=== PATIENT | female | born 1970 | race Caucasian/White ===

== ENCOUNTER 2018-04-15 12:31 | Emergency (ER) | payer BC, MEDICAID ==
[~2018-04-15] VITALS: Ht 157.5 cm; Wt 61.7 kg
[2018-04-15] MEDS ORDERED: DIPHENHYDRAMINE 50 MG/ML, 1ML IVPush ONE (14:00)
[2018-04-15] MEDS ORDERED: KETOROLAC 30 MG/1 ML IVPush ONE (14:00)
[2018-04-15] MEDS ORDERED: SODIUM CHLORIDE FLUSH 10ML SYR IVF ONE (14:00)
[2018-04-15] MEDS ORDERED: SODIUM CHLORIDE 0.9% 1,000ML IVBOLUS ONE (14:00)
[2018-04-15] MEDS ORDERED: METOCLOPRAMIDE 5 MG/ML, 2ML IVPush ONE (14:00)
[2018-04-15 14:07] LABS: BASOPHILS # (AUTO) 0.04 x10^3/uL (0-0.1); BASOPHILS % (AUTO) 0 % (0-1); EOSINOPHILS # (AUTO) 0.05 x10^3/uL (0-0.4); EOSINOPHILS % (AUTO) 0 % (1-7); LYMPHOCYTES # (AUTO) 2.48 x10^3/uL (1-3.4); LYMPHOCYTES % (AUTO) 19 % (22-44); MD NO; MEAN CORPUSCULAR HEMOGLOBIN 31.8 pg (27.0-34.8); MEAN CORPUSCULAR HGB CONC 33.9 g/dL (32.4-35.8); MEAN PLATELET VOLUME 8.4 fL (7.4-10.4); MONOCYTES # (AUTO) 0.98 x10^3/uL (0.2-0.8); MONOCYTES % (AUTO) 8 % (2-9); NEUTROPHILS # (AUTO) 9.31 x10^3/uL (1.8-6.8); NEUTROPHILS % (AUTO) 72 % (42-75); PLATELET COUNT 419 x10^3/uL (130-400); RED BLOOD COUNT 3.91 x10^6/uL (3.82-5.3)
[2018-04-15] MEDS ORDERED: METOCLOPRAMIDE 5 MG/ML, 2ML ONE (14:19)
[2018-04-15] MEDS ORDERED: KETOROLAC 30 MG/1 ML ONE (14:19)
[2018-04-15] MEDS ORDERED: DIPHENHYDRAMINE 50 MG/ML, 1ML ONE (14:19)
[2018-04-15 14:21] LABS: ALBUMIN 3.6 g/dL (3.4-5.0); ANION GAP 6 mmol/L (5-15); CALCIUM 8.7 mg/dL (8.5-10.1); CHLORIDE 108 mmol/L (98-107)
[2018-04-15 14:25] LABS: ALANINE AMINOTRANSFERASE 181 U/L (12-78); ALKALINE PHOSPHATASE 286 U/L (45-117); BILIRUBIN,TOTAL 0.8 mg/dL (0.2-1.0); CREATININE 0.76 mg/dL (0.55-1.02); TOTAL PROTEIN 7.2 g/dL (6.4-8.2)
[2018-04-15 14:51] LABS: MICROSCOPIC NOT IND
[2018-04-15 15:03] LABS: CULTURE INDICATED? NO
[2018-04-15 15:37] VITALS: BP 115/85
== END 2018-04-15 16:07 | disposition home or self-care (01) ==
LOC: ED 16:00
DX: R10.84 Generalized abdominal pain (principal); R11.2 Nausea with vomiting, unspecified; I10 Essential (primary) hypertension
CPT/HCPCS: 36415; 76700; 80053; 81003; 83690; 85025; 86677; 93005; 96361; 96374; 96375; 99285; J1200; J1885; J2765; J7030

== ENCOUNTER 2018-04-18 13:31 | Inpatient (IN) | payer MEDICAID ==
[~2018-04-18] VITALS: Ht 157.5 cm; Wt 66.0 kg
[2018-04-18 14:27] LABS: HCG UR SG 1.011 (1.003-1.030); MICROSCOPIC NOT IND
[2018-04-18 14:30] LABS: CULTURE INDICATED? NO
[2018-04-18] MEDS ORDERED: PANTOPRAZOLE 20MG TABLET PO ONE (14:30)
[2018-04-18] MEDS ORDERED: MAALOX/HYOSCYAMINE/LIDOCAINE 45 ML BTL PO ONE (14:30)
[2018-04-18] MEDS ORDERED: NICO-523 PO (14:32)
[2018-04-18] MEDS ORDERED: GABA100C PO (14:32)
[2018-04-18] MEDS ORDERED: CHOL4PAC2 PO (14:32)
[2018-04-18] MEDS ORDERED: ALBU5SOL6 INH (14:32)
[2018-04-18] MEDS ORDERED: ALPR1TAB6 PO (14:32)
[2018-04-18] MEDS ORDERED: DOXY100C26 PO (14:32)
[2018-04-18] MEDS ORDERED: DICL100G19 XX (14:32)
[2018-04-18] MEDS ORDERED: ATOR10TA PO (14:32)
[2018-04-18] MEDS ORDERED: MAALOX/HYOSCYAMINE/LIDOCAINE 45 ML BTL ONE (14:36)
[2018-04-18] MEDS ORDERED: PANTOPRAZOLE 20MG TABLET ONE (14:36)
[2018-04-18 14:46] LABS: BASOPHILS # (AUTO) 0.09 x10^3/uL (0-0.1); BASOPHILS % (AUTO) 1 % (0-1); EOSINOPHILS # (AUTO) 0.14 x10^3/uL (0-0.4); EOSINOPHILS % (AUTO) 1 % (1-7); LYMPHOCYTES # (AUTO) 4.07 x10^3/uL (1-3.4); LYMPHOCYTES % (AUTO) 30 % (22-44); MD NO; MEAN CORPUSCULAR HEMOGLOBIN 30.9 pg (27.0-34.8); MEAN CORPUSCULAR HGB CONC 33.2 g/dL (32.4-35.8); MEAN CORPUSCULAR VOLUME 93.2 fL (80-100); MEAN PLATELET VOLUME 8.3 fL (7.4-10.4); MONOCYTES # (AUTO) 0.86 x10^3/uL (0.2-0.8); MONOCYTES % (AUTO) 6 % (2-9); NEUTROPHILS # (AUTO) 8.24 x10^3/uL (1.8-6.8); NEUTROPHILS % (AUTO) 61 % (42-75); PLATELET COUNT 449 x10^3/uL (130-400); RED BLOOD COUNT 3.71 x10^6/uL (3.82-5.3); RED CELL DISTRIBUTION WIDTH 15.2 % (9.6-15.2)
[2018-04-18 14:53] LABS: ALANINE AMINOTRANSFERASE 278 U/L (12-78); ALBUMIN 3.4 g/dL (3.4-5.0); ANION GAP 7 mmol/L (5-15); CALCIUM 8.9 mg/dL (8.5-10.1); CHLORIDE 110 mmol/L (98-107); CREATININE 0.79 mg/dL (0.55-1.02)
[2018-04-18 14:55] LABS: ALKALINE PHOSPHATASE 386 U/L (45-117); BILIRUBIN,TOTAL 0.9 mg/dL (0.2-1.0)
[2018-04-18] MEDS ORDERED: OMNIPAQUE 350 MG/ML, 100ML BOTTLE ONE (15:59)
[2018-04-18] MEDS ORDERED: OXYcodone IR 5MG TABLET PO ONE (18:30)
[2018-04-18] MEDS ORDERED: OXYcodone IR 5MG TABLET ONE (18:45)
[2018-04-18] MEDS ORDERED: BISACODYL 10 MG SUPP PR PRN (19:30)
[2018-04-18] MEDS ORDERED: POLYETHYLENE GLYCOL 17 GM PACKET PO PRN (19:30)
[2018-04-18 19:55] VITALS: BP 118/78
[2018-04-18] MEDS: NICOTINE 7 MG/24 HR PATCH.TD24 TD SCH (20:19)
[2018-04-18] MEDS: GABAPENTIN 100 MG CAPSULE PO SCH (21:00)
[2018-04-18] MEDS: CHOLESTYRAMINE LIGHT 4GM PACKET PO SCH (21:00)
[2018-04-18] MEDS: SODIUM CHLORIDE FLUSH 10ML SYR IVF SCH (21:00)
[2018-04-18] MEDS: DOXYCYCLINE 100MG TABLET PO SCH (21:00)
[2018-04-18] MEDS: ATORVASTATIN 10 MG TABLET PO SCH (21:00)
[2018-04-18] MEDS: SODIUM CHLORIDE 0.9% 1,000 ML IV SCH (21:09)
[2018-04-18] MEDS: morphine SULFATE 10 MG/ML, 1ML IVPush PRN (21:41)
[2018-04-18] MEDS ORDERED: ALBUTEROL SULFATE 2.5 MG/3 ML NPPB PRN (22:00)
[2018-04-18] MEDS: HEPARIN 5,000 UNITS/ML, 1ML SQ SCH (22:00)
[2018-04-19] MEDS: morphine SULFATE 10 MG/ML, 1ML IVPush PRN ×6 (00:35→22:32)
[2018-04-19 02:20] VITALS: BP 126/84
[2018-04-19 04:38] LABS: BASOPHILS # (AUTO) 0.07 x10^3/uL (0-0.1); BASOPHILS % (AUTO) 1 % (0-1); EOSINOPHILS % (AUTO) 2 % (1-7); LYMPHOCYTES # (AUTO) 3.98 x10^3/uL (1-3.4); LYMPHOCYTES % (AUTO) 40 % (22-44); MD NO; MEAN CORPUSCULAR HEMOGLOBIN 32.4 pg (27.0-34.8); MEAN CORPUSCULAR HGB CONC 34.3 g/dL (32.4-35.8); MEAN CORPUSCULAR VOLUME 94.3 fL (80-100); MEAN PLATELET VOLUME 8.5 fL (7.4-10.4); MONOCYTES # (AUTO) 0.73 x10^3/uL (0.2-0.8); MONOCYTES % (AUTO) 7 % (2-9); NEUTROPHILS # (AUTO) 5.02 x10^3/uL (1.8-6.8); NEUTROPHILS % (AUTO) 50 % (42-75); PLATELET COUNT 387 x10^3/uL (130-400); RED BLOOD COUNT 3.51 x10^6/uL (3.82-5.3); RED CELL DISTRIBUTION WIDTH 15.3 % (9.6-15.2)
[2018-04-19 04:50] LABS: ALBUMIN 3.2 g/dL (3.4-5.0); ANION GAP 5 mmol/L (5-15); CALCIUM 8.3 mg/dL (8.5-10.1); CHLORIDE 110 mmol/L (98-107)
[2018-04-19 04:56] LABS: ALANINE AMINOTRANSFERASE 217 U/L (12-78); ALKALINE PHOSPHATASE 361 U/L (45-117); BILIRUBIN,TOTAL 0.7 mg/dL (0.2-1.0); CREATININE 0.75 mg/dL (0.55-1.02); TOTAL PROTEIN 6.2 g/dL (6.4-8.2)
[2018-04-19] MEDS: HEPARIN 5,000 UNITS/ML, 1ML SQ SCH ×2 (06:29→16:17)
[2018-04-19 07:25] VITALS: BP 146/88
[2018-04-19] MEDS: SENNA/DOCUSATE TABLET PO SCH (09:00)
[2018-04-19] MEDS: DOXYCYCLINE 100MG TABLET PO SCH ×2 (09:00→21:00)
[2018-04-19] MEDS: GABAPENTIN 100 MG CAPSULE PO SCH ×2 (09:00→21:00)
[2018-04-19] MEDS: CHOLESTYRAMINE LIGHT 4GM PACKET PO SCH ×3 (09:00→21:00)
[2018-04-19] MEDS: SODIUM CHLORIDE FLUSH 10ML SYR IVF SCH ×2 (09:00→21:00)
[2018-04-19] MEDS: BUTALB/APAP/CAFFEINE 50MG/325MG/40MG PO PRN (09:30)
[2018-04-19] MEDS ORDERED: KETOROLAC 30 MG/1 ML IVPush ONE (11:45)
[2018-04-19] MEDS: SODIUM CHLORIDE 0.9% 1,000 ML IV SCH (12:23)
[2018-04-19 13:18] VITALS: BP 125/83
[2018-04-19 15:25] LABS: INTERNATIONAL NORMALIZED RATIO 1.01 (0.93-1.1); PROTHROMBIN TIME 10.5 Seconds (9.6-11.5)
[2018-04-19 19:06] VITALS: BP 145/90
[2018-04-19] MEDS: NICOTINE 7 MG/24 HR PATCH.TD24 TD SCH (19:23)
[2018-04-19] MEDS: ATORVASTATIN 10 MG TABLET PO SCH (21:00)
[2018-04-20] MEDS: SODIUM CHLORIDE 0.9% 1,000 ML IV SCH ×2 (00:16→16:46)
[2018-04-20] MEDS: morphine SULFATE 10 MG/ML, 1ML IVPush PRN ×3 (01:31→13:00)
[2018-04-20 01:41] VITALS: BP 135/88
[2018-04-20] MEDS: HEPARIN 5,000 UNITS/ML, 1ML SQ SCH ×4 (06:00→22:47)
[2018-04-20 07:03] VITALS: BP 164/99
[2018-04-20] MEDS: SODIUM CHLORIDE FLUSH 10ML SYR IVF SCH ×2 (07:31→21:00)
[2018-04-20] MEDS: DOXYCYCLINE 100MG TABLET PO SCH ×2 (07:33→21:00)
[2018-04-20] MEDS: CHOLESTYRAMINE LIGHT 4GM PACKET PO SCH ×3 (07:33→21:00)
[2018-04-20] MEDS: GABAPENTIN 100 MG CAPSULE PO SCH ×2 (07:33→21:00)
[2018-04-20] MEDS: SENNA/DOCUSATE TABLET PO SCH (07:33)
[2018-04-20] MEDS ORDERED: MIDAZOLAM 1 MG/ML, 2ML ONE ×2 (07:58→09:47)
[2018-04-20] MEDS ORDERED: PROPOFOL 10 MG/ML, 20ML ONE (09:46)
[2018-04-20] MEDS ORDERED: SUCCINYLCHOLINE 20 MG/ML, 10ML ONE (09:46)
[2018-04-20] MEDS ORDERED: FENTANYL PF 100 MCG/2ML ONE ×2 (09:47→12:02)
[2018-04-20] MEDS ORDERED: DEXAMETHASONE 4 MG/ML, 1ML ONE (09:47)
[2018-04-20] MEDS ORDERED: ONDANSETRON 2MG/ML, 2ML ONE (09:47)
[2018-04-20] MEDS ORDERED: OXYcodone 5 MG/5 ML ORAL.SOL UDC PO PRN (10:30)
[2018-04-20] MEDS ORDERED: PROMETHAZINE 25 MG/ML, 1ML IV PRN (10:30)
[2018-04-20] MEDS ORDERED: EPHEDRINE 50 MG/ML, 1ML IVPush PRN (10:30)
[2018-04-20] MEDS ORDERED: METOPROLOL 1 MG/ML, 5ML IV PRN (10:30)
[2018-04-20] MEDS ORDERED: FENTANYL PF 100 MCG/2ML IV PRN (10:30)
[2018-04-20] MEDS ORDERED: ALBUTEROL SULFATE 2.5 MG/3 ML NPPB PRN (10:30)
[2018-04-20] MEDS ORDERED: MEPERIDINE/PF 25MG/0.5ML IVPush PRN (10:30)
[2018-04-20] MEDS ORDERED: hydrALAzine 20 MG/ML, 1ML IV PRN (10:30)
[2018-04-20] MEDS ORDERED: LABETALOL 5MG/ML, 20ML IV PRN (10:30)
[2018-04-20] MEDS ORDERED: EPHEDRINE 50 MG/ML, 1ML ONE (10:37)
[2018-04-20] MEDS ORDERED: OMNIPAQUE 350 MG/ML, 50 ML BOTTLE ONE (12:28)
[2018-04-20] MEDS ORDERED: GLUCAGON 1 MG ONE ×2 (12:53→13:42)
[2018-04-20 14:06] VITALS: BP 156/85
[2018-04-20] MEDS ORDERED: HYDROmorphone 1 MG/ML, 1ML IV ONE (14:30)
[2018-04-20] MEDS ORDERED: HYDROmorphone 2 MG/ML, 1ML ONE (14:55)
[2018-04-20] MEDS: MORPHINE SULFATE 4 MG/ML, 1ML IVPush PRN ×2 (19:05→22:44)
[2018-04-20] MEDS: NICOTINE 7 MG/24 HR PATCH.TD24 TD SCH (19:27)
[2018-04-20 19:30] VITALS: BP 161/92
[2018-04-20] MEDS: ATORVASTATIN 10 MG TABLET PO SCH (21:00)
[2018-04-21 03:20] VITALS: BP 156/88
[2018-04-21] MEDS: MORPHINE SULFATE 4 MG/ML, 1ML IVPush PRN (04:16)
[2018-04-21] MEDS: SODIUM CHLORIDE 0.9% 1,000 ML IV SCH ×2 (05:27→20:37)
[2018-04-21 05:55] LABS: ALBUMIN 2.9 g/dL (3.4-5.0); ANION GAP 6 mmol/L (5-15); CALCIUM 8.1 mg/dL (8.5-10.1); CHLORIDE 111 mmol/L (98-107)
[2018-04-21 05:59] LABS: ALANINE AMINOTRANSFERASE 159 U/L (12-78); ALKALINE PHOSPHATASE 387 U/L (45-117); BILIRUBIN,TOTAL 0.8 mg/dL (0.2-1.0); CREATININE 0.68 mg/dL (0.55-1.02); TOTAL PROTEIN 5.9 g/dL (6.4-8.2)
[2018-04-21] MEDS: HEPARIN 5,000 UNITS/ML, 1ML SQ SCH ×3 (06:00→20:35)
[2018-04-21 07:45] VITALS: BP 136/88
[2018-04-21] MEDS: BUTALB/APAP/CAFFEINE 50MG/325MG/40MG PO PRN (08:48)
[2018-04-21] MEDS: SODIUM CHLORIDE FLUSH 10ML SYR IVF SCH ×2 (08:48→20:37)
[2018-04-21] MEDS: CHOLESTYRAMINE LIGHT 4GM PACKET PO SCH ×3 (08:49→20:38)
[2018-04-21] MEDS: SENNA/DOCUSATE TABLET PO SCH (08:49)
[2018-04-21] MEDS: GABAPENTIN 100 MG CAPSULE PO SCH ×2 (08:49→20:37)
[2018-04-21] MEDS: DOXYCYCLINE 100MG TABLET PO SCH (08:49)
[2018-04-21 12:22] LABS: BASOPHILS # (AUTO) 0.03 x10^3/uL (0-0.1); BASOPHILS % (AUTO) 0 % (0-1); EOSINOPHILS # (AUTO) 0.01 x10^3/uL (0-0.4); EOSINOPHILS % (AUTO) 0 % (1-7); LYMPHOCYTES # (AUTO) 2.64 x10^3/uL (1-3.4); LYMPHOCYTES % (AUTO) 17 % (22-44); MD NO; MEAN CORPUSCULAR HEMOGLOBIN 31.8 pg (27.0-34.8); MEAN CORPUSCULAR HGB CONC 33.3 g/dL (32.4-35.8); MEAN CORPUSCULAR VOLUME 95.6 fL (80-100); MEAN PLATELET VOLUME 9.7 fL (7.4-10.4); MONOCYTES # (AUTO) 0.85 x10^3/uL (0.2-0.8); MONOCYTES % (AUTO) 6 % (2-9); NEUTROPHILS # (AUTO) 12.08 x10^3/uL (1.8-6.8); NEUTROPHILS % (AUTO) 77 % (42-75); PLATELET COUNT 356 x10^3/uL (130-400); RED BLOOD COUNT 3.34 x10^6/uL (3.82-5.3); RED CELL DISTRIBUTION WIDTH 15.6 % (9.6-15.2)
[2018-04-21 15:56] VITALS: BP 142/84
[2018-04-21] MEDS: ONDANSETRON 2MG/ML, 2ML IVPush PRN ×2 (17:24→23:28)
[2018-04-21] MEDS: KETOROLAC 30 MG/1 ML IVPush PRN ×2 (17:25→23:28)
[2018-04-21 19:22] VITALS: BP 124/80
[2018-04-21] MEDS: ATORVASTATIN 10 MG TABLET PO SCH (20:37)
[2018-04-21] MEDS: NICOTINE 7 MG/24 HR PATCH.TD24 TD SCH (20:38)
[2018-04-21] MEDS: LORazepam 1MG TABLET PO PRN (20:44)
[2018-04-22 01:42] VITALS: BP 143/89
[2018-04-22] MEDS: KETOROLAC 30 MG/1 ML IVPush PRN ×2 (05:11→20:36)
[2018-04-22 05:29] LABS: BASOPHILS # (AUTO) 0.05 x10^3/uL (0-0.1); BASOPHILS % (AUTO) 1 % (0-1); EOSINOPHILS # (AUTO) 0.11 x10^3/uL (0-0.4); EOSINOPHILS % (AUTO) 1 % (1-7); LYMPHOCYTES # (AUTO) 4.19 x10^3/uL (1-3.4); LYMPHOCYTES % (AUTO) 38 % (22-44); MD NO; MEAN CORPUSCULAR HEMOGLOBIN 32.4 pg (27.0-34.8); MEAN CORPUSCULAR HGB CONC 33.6 g/dL (32.4-35.8); MEAN CORPUSCULAR VOLUME 96.6 fL (80-100); MEAN PLATELET VOLUME 9.3 fL (7.4-10.4); MONOCYTES # (AUTO) 0.84 x10^3/uL (0.2-0.8); MONOCYTES % (AUTO) 8 % (2-9); NEUTROPHILS # (AUTO) 5.84 x10^3/uL (1.8-6.8); NEUTROPHILS % (AUTO) 53 % (42-75); PLATELET COUNT 304 x10^3/uL (130-400); RED BLOOD COUNT 3.03 x10^6/uL (3.82-5.3); RED CELL DISTRIBUTION WIDTH 16.9 % (9.6-15.2)
[2018-04-22 05:33] LABS: CHLORIDE 111 mmol/L (98-107)
[2018-04-22 05:38] LABS: ALANINE AMINOTRANSFERASE 115 U/L (12-78); ALBUMIN 2.7 g/dL (3.4-5.0); ALKALINE PHOSPHATASE 297 U/L (45-117); ANION GAP 7 mmol/L (5-15); BILIRUBIN,TOTAL 0.4 mg/dL (0.2-1.0); CALCIUM 8.1 mg/dL (8.5-10.1); CREATININE 0.77 mg/dL (0.55-1.02); TOTAL PROTEIN 5.5 g/dL (6.4-8.2)
[2018-04-22] MEDS: HEPARIN 5,000 UNITS/ML, 1ML SQ SCH ×3 (06:00→21:12)
[2018-04-22 08:00] VITALS: BP 151/91
[2018-04-22] MEDS: SODIUM CHLORIDE FLUSH 10ML SYR IVF SCH ×2 (08:20→20:36)
[2018-04-22] MEDS: CHOLESTYRAMINE LIGHT 4GM PACKET PO SCH ×3 (08:20→21:00)
[2018-04-22] MEDS: SENNA/DOCUSATE TABLET PO SCH (08:20)
[2018-04-22] MEDS: GABAPENTIN 100 MG CAPSULE PO SCH ×2 (08:20→21:00)
[2018-04-22 14:30] VITALS: BP 154/99
[2018-04-22] MEDS: NICOTINE 7 MG/24 HR PATCH.TD24 TD SCH (16:12)
[2018-04-22] MEDS: LORazepam 1MG TABLET PO PRN (16:16)
[2018-04-22 19:13] VITALS: BP 113/70
[2018-04-22] MEDS: SODIUM CHLORIDE 0.9% 1,000 ML IV SCH (20:08)
[2018-04-22] MEDS: ATORVASTATIN 10 MG TABLET PO SCH (21:00)
[2018-04-23 01:29] VITALS: BP 146/84
[2018-04-23] MEDS: SODIUM CHLORIDE 0.9% 1,000 ML IV SCH ×3 (03:33→20:05)
[2018-04-23 04:34] LABS: BASOPHILS # (AUTO) 0.05 x10^3/uL (0-0.1); BASOPHILS % (AUTO) 0 % (0-1); EOSINOPHILS # (AUTO) 0.22 x10^3/uL (0-0.4); EOSINOPHILS % (AUTO) 2 % (1-7); LYMPHOCYTES # (AUTO) 3.25 x10^3/uL (1-3.4); LYMPHOCYTES % (AUTO) 25 % (22-44); MD NO; MEAN CORPUSCULAR HGB CONC 33.4 g/dL (32.4-35.8); MEAN CORPUSCULAR VOLUME 95.7 fL (80-100); MEAN PLATELET VOLUME 8.7 fL (7.4-10.4); MONOCYTES % (AUTO) 8 % (2-9); NEUTROPHILS # (AUTO) 8.56 x10^3/uL (1.8-6.8); NEUTROPHILS % (AUTO) 66 % (42-75); PLATELET COUNT 333 x10^3/uL (130-400); RED BLOOD COUNT 3.26 x10^6/uL (3.82-5.3); RED CELL DISTRIBUTION WIDTH 16.1 % (9.6-15.2)
[2018-04-23 04:45] LABS: ALANINE AMINOTRANSFERASE 93 U/L (12-78); ALBUMIN 2.8 g/dL (3.4-5.0); ANION GAP 6 mmol/L (5-15); CALCIUM 7.9 mg/dL (8.5-10.1); CHLORIDE 112 mmol/L (98-107); CREATININE 0.76 mg/dL (0.55-1.02)
[2018-04-23 04:47] LABS: ALKALINE PHOSPHATASE 275 U/L (45-117); BILIRUBIN,TOTAL 0.4 mg/dL (0.2-1.0); TOTAL PROTEIN 5.9 g/dL (6.4-8.2)
[2018-04-23] MEDS: HEPARIN 5,000 UNITS/ML, 1ML SQ SCH ×3 (05:21→19:53)
[2018-04-23] MEDS: LORazepam 1MG TABLET PO PRN ×2 (06:38→20:06)
[2018-04-23 06:45] VITALS: BP 165/104
[2018-04-23] MEDS: SENNA/DOCUSATE TABLET PO SCH (07:55)
[2018-04-23] MEDS: CHOLESTYRAMINE LIGHT 4GM PACKET PO SCH ×3 (07:55→19:52)
[2018-04-23] MEDS: GABAPENTIN 100 MG CAPSULE PO SCH ×2 (07:56→19:52)
[2018-04-23] MEDS: SODIUM CHLORIDE FLUSH 10ML SYR IVF SCH ×2 (07:56→19:51)
[2018-04-23 10:15] VITALS: BP 145/87
[2018-04-23 14:06] VITALS: BP 172/92
[2018-04-23] MEDS ORDERED: hydrALAzine 20 MG/ML, 1ML IV PRN (15:00)
[2018-04-23] MEDS: NICOTINE 7 MG/24 HR PATCH.TD24 TD SCH (16:45)
[2018-04-23] MEDS: ATORVASTATIN 10 MG TABLET PO SCH (19:52)
[2018-04-23 20:24] VITALS: BP 153/88
[2018-04-24 01:03] VITALS: BP 168/99
[2018-04-24 05:07] LABS: CHLORIDE 109 mmol/L (98-107)
[2018-04-24 05:14] LABS: BASOPHILS # (AUTO) 0.09 x10^3/uL (0-0.1); BASOPHILS % (AUTO) 1 % (0-1); EOSINOPHILS # (AUTO) 0.25 x10^3/uL (0-0.4); EOSINOPHILS % (AUTO) 2 % (1-7); LYMPHOCYTES # (AUTO) 3.55 x10^3/uL (1-3.4); LYMPHOCYTES % (AUTO) 29 % (22-44); MD NO; MEAN CORPUSCULAR HEMOGLOBIN 32.3 pg (27.0-34.8); MEAN CORPUSCULAR HGB CONC 33.7 g/dL (32.4-35.8); MEAN CORPUSCULAR VOLUME 95.9 fL (80-100); MEAN PLATELET VOLUME 9.3 fL (7.4-10.4); MONOCYTES # (AUTO) 1.09 x10^3/uL (0.2-0.8); MONOCYTES % (AUTO) 9 % (2-9); NEUTROPHILS # (AUTO) 7.29 x10^3/uL (1.8-6.8); NEUTROPHILS % (AUTO) 59 % (42-75); PLATELET COUNT 351 x10^3/uL (130-400); RED BLOOD COUNT 3.36 x10^6/uL (3.82-5.3)
[2018-04-24 05:16] LABS: ALANINE AMINOTRANSFERASE 80 U/L (12-78); ALBUMIN 2.8 g/dL (3.4-5.0); ALKALINE PHOSPHATASE 246 U/L (45-117); ANION GAP 7 mmol/L (5-15); BILIRUBIN,TOTAL 0.3 mg/dL (0.2-1.0); CALCIUM 8.6 mg/dL (8.5-10.1); CREATININE 0.84 mg/dL (0.55-1.02); TOTAL PROTEIN 6.2 g/dL (6.4-8.2)
[2018-04-24] MEDS: HEPARIN 5,000 UNITS/ML, 1ML SQ SCH (06:00)
[2018-04-24] MEDS: SODIUM CHLORIDE 0.9% 1,000 ML IV SCH (06:16)
[2018-04-24] MEDS: GABAPENTIN 100 MG CAPSULE PO SCH (07:26)
[2018-04-24] MEDS: SENNA/DOCUSATE TABLET PO SCH (07:26)
[2018-04-24] MEDS: CHOLESTYRAMINE LIGHT 4GM PACKET PO SCH (07:26)
[2018-04-24] MEDS ORDERED: AMLODIPINE 5 MG TABLET PO SCH (09:00)
[2018-04-24] MEDS: SODIUM CHLORIDE FLUSH 10ML SYR IVF SCH (09:00)
[2018-04-24 09:15] VITALS: BP 163/93
[2018-04-24] MEDS: LORazepam 1MG TABLET PO PRN (09:16)
[2018-04-24 13:14] VITALS: BP 149/84
[2018-04-24] MEDS ORDERED: AMLO5TAB2 PO (13:34)
== END 2018-04-24 14:00 | disposition home or self-care (01) | DRG 444 ==
LOC: ED 14:45 → EDIP 18:33 → 3NE 19:53
PROVIDERS: ADMIT Hospitalist; ATTEND Hospitalist
PROC: BF101ZZ Fluoroscopy of Bile Ducts using Low Osmolar Contrast (ICD-10-PCS; 2018-04-20)
PROC: 0FC98ZZ Extirpation of Matter from Common Bile Duct, Via Natural or Artificial Opening Endoscopic (ICD-10-PCS; principal; 2018-04-20 10:30)
DX: K80.51 Calculus of bile duct without cholangitis or cholecystitis with obstruction (principal); K85.90 Acute pancreatitis without necrosis or infection, unspecified; D64.9 Anemia, unspecified; E78.5 Hyperlipidemia, unspecified; F17.210 Nicotine dependence, cigarettes, uncomplicated; F41.9 Anxiety disorder, unspecified; G43.909 Migraine, unspecified, not intractable, without status migrainosus; J44.9 Chronic obstructive pulmonary disease, unspecified; N83.201 Unspecified ovarian cyst, right side; I10 Essential (primary) hypertension; R79.89 Other specified abnormal findings of blood chemistry; R74.0 Nonspecific elevation of levels of transaminase and lactic acid dehydrogenase [LDH]; Z80.1 Family history of malignant neoplasm of trachea, bronchus and lung; Z90.49 Acquired absence of other specified parts of digestive tract
CPT/HCPCS: 36415; 74018; 74177; 74181; 74328; 80053; 80074; 81003; 81025; 83690; 85025; 85610; 99285; J1100; J1170; J1644; J1885; J2250; J2405; J2704; J3010; Q9967; C1769; J0330; J1610; J2270; J7030